=== PATIENT | female | born 2005 | race Caucasian/White ===

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

== ENCOUNTER 2024-08-24 14:05 | Emergency (ER) | payer BC, MEDICAID ==
[~2024-08-24] VITALS: Ht 172.7 cm; Wt 89.6 kg
[2024-08-24 16:17] VITALS: BP 120/60; PULSE 84; RESP 16; TEMP 98; O2SAT 97
== END 2024-08-24 16:18 | disposition home or self-care (01) ==
LOC: ER 14:05
DX: S60.211A Contusion of right wrist, initial encounter (principal); X58.XXXA Exposure to other specified factors, initial encounter; Y93.89 Activity, other specified; Y92.89 Other specified places as the place of occurrence of the external cause; Y99.8 Other external cause status
CPT/HCPCS: 29125; 73130; 99283

== ENCOUNTER 2025-07-20 13:22 | Emergency (ER) | payer BC, MEDICAID ==
[~2025-07-20] VITALS: Ht 172.7 cm; Wt 85.0 kg
[2025-07-20 13:24] VITALS: BP 126/80; PULSE 91; TEMP 96.8; O2SAT 98
--- NOTE | 2025-07-20 13:25 | Physician Documentation ---
History of Present Illness ~ Stated Complaint: MED CLEARANCE Time Seen by MD: 13:24 Primary Medical Doctor: [facility] 20-year-old female who presents to the emergency department requesting clearance to enter transitional housing. She reports that she has a history of alcohol use disorder, last drink was two days ago. Her symptoms include anxiety and mild tremor. She also notes that she has a headache. Tetanus within 5 years?: Yes Medication Reconciliation Allergies: Coded Allergies: No Known Allergies (Unverified , 07/20/25) Miscellaneous Medications Home Med List (No Home Medications), (Reported) Past Medical History Past Medical History: No Pertinent History Past Surgical History: no surgical history Lives with: Mother Lives In: Home Occupation: student Review of Systems ROS As stated above in the HPI, otherwise all systems are reviewed and negative. Physical Exam Physical Exam General: Alert, no apparent distress. HEENT: PERRL, EOMI, no injection, moist mucous membranes. Neck: Full range of motion. Respiratory: Lungs clear, no respiratory distress. Chest: No accessory muscle use. Cardiovascular: Regular rate and rhythm, no murmurs. Gastrointestinal: Soft, nontender, nondistended. Bowels sounds present. Extremities: Normal range of motion, no deformity. Neurologic: Oriented x4. Mild tremor of hands. Psychiatric: Normal mood and affect. Skin: Normal color, warm and dry. No edema, no ecchymosis. Progress Results/Orders Results/Orders Completed Orders - SEAN ALCAZAR NP Lorazepam Tablet (Ativan Tablet) (07/20/25 13:30) Medications Received in ER Medications (Trade) Dose Ordered Sig/[facility] Route PRN Reason Start Time Stop Time Status Last Admin Dose Admin (Ativan tablet) 1 mg ONCE ONCE PO 07/20/25 13:30 07/20/25 13:31 DC 07/20/25 13:42 1 MG Vital Signs 07/20/25 07/20/25 13:24 13:42 Temp 96.8 Pulse 91 Resp 15 15 B/P (MAP) 126/80 Pulse Ox 98 Medical Decision Making Additional information obtaine: old records Findings 08/24/24 patient here for contusion Differential Dx:Considerations: Include: Intoxication-Alcohol, Intoxication- Other drug, Personality disorder, Substance abuse disorder, Acute delirium, Closed head injury, Cervical spine injury, Skull fracture, Fracture(s), Abrasion, Contusion, Foreign body, Hematoma, Laceration, Alcohol withdrawl syndrom, Encephalopathy, Hepatitis, Medically stable Departure Time of Disposition: 13:27 Disposition: 01 HOME / SELF CARE / HOMELESS Impression: Primary Impression: General medical exam Additional Impression: Alcohol use disorder Discharge Instructions: Alcohol Use Disorder, Medical Screening Exam Additional Instructions: Medically cleared to enter transitional housing. Referrals: NO PRIMARY CARE PROVIDER (PCP) Education Educated: Patient Educated regarding: diagnosis, treatment, prognosis, need for follow up Signature Scribe Signature: x Attestation: The note accurately reflects work and decisions made by me.Sean Mann NP 07/20/25 14:09 SEAN ALCAZAR NP Jul 20, 2025 13:25
[2025-07-20 13:42] VITALS: RESP 15
== END 2025-07-20 13:45 | disposition home or self-care (01) ==
LOC: ER 13:22
DX: Z00.00 Encounter for general adult medical examination without abnormal findings (principal); F10.10 Alcohol abuse, uncomplicated; R51.9 Headache, unspecified; F41.9 Anxiety disorder, unspecified; Y90.9 Presence of alcohol in blood, level not specified
CPT/HCPCS: 99283

== ENCOUNTER 2025-08-10 20:57 | Emergency (ER) | payer MEDICAID ==
[~2025-08-10] VITALS: Ht 172.7 cm; Wt 83.9 kg
--- NOTE | 2025-08-10 21:14 | Physician Documentation ---
History of Present Illness ~ Chief Complaint: Abscess Stated Complaint: FACIAL SWELLING Time Seen by MD: 21:09 Primary Medical Doctor: None HPI 20-year-old female presents to the ED with a complaint of a pimple that has grown in size x1 day. States she wants it lanced because she is unable to sleep. denies any fevers nausea vomiting. Tetanus Within 5 Years: No Medication Reconciliation Allergies: Coded Allergies: No Known Allergies (Unverified , 07/20/25) Miscellaneous Medications Home Med List (No Home Medications), (Reported) Past Medical History Past Medical History: No Pertinent History Past Surgical History: no surgical history Lives with: Mother Lives In: Home Occupation: student Review of Systems All Other Systems at this time: Reviewed and Negative ROS As stated above in the HPI, otherwise all systems are reviewed and negative. Physical Exam Vital Signs: Temperature: 98.0, Heart Rate: 101, Respiratory Rate: 16, BP: 120/78, Pulse Oximetry: 97, Weight: 83.900 Oxygen Flow Rate: 0 Physical Exam General: Alert, no apparent distress. HEENT: PERRL, EOMI, no injection, moist mucous membranes. 1 Cm pustule with surrounding erythema on the superior aspect of the left Neck: Full range of motion. Respiratory: Lungs clear, no respiratory distress. Procedures I & D Procedure : Anesthesia: Lidocaine w/ Epi Blade Size: 11 Incision: blood drained Tolerated Procedure Well?: yes, no complications Progress Results/Orders Results/Orders Orders - ROLANDO ESPARZA TRESTLE MECHANIC Laceration/I&D Tray Set Up (08/10/25 ) Hydrocodone/Apap 5/325mg Tab ([place] 5/32 (08/10/25 21:35) Completed Orders - ROLANDO ESPARZA TRESTLE MECHANIC Lidocaine 1% W/Epi 1:100,000 (Xylocaine (08/10/25 21:10) Vital Signs 08/10/25 20:59 Temp 98.0 Pulse 101 Resp 16 B/P (MAP) 120/78 Pulse Ox 97 O2 Flow Rate 0 Medical Decision Making Additional information obtaine: old records Findings Attempted to drain this patient is pustule on her left brow. Even with a small incision there was no obvious purulent discharge however did bleed. Suspect the reported abscesses primarily due to inflammation. We will place her on antibiotics and give her some ibuprofen for home Differential Dx:Considerations: Include: Abscess, Bacteremia, Cellulitis, Erysipelas, Felon, Gas gangrene, Hidrademitis suppurativa, Impetigo, Lymphangitis, Osteromyelitis, Paronychia, Septicemia, Other Departure Disposition: 01 HOME / SELF CARE / HOMELESS Impression: Primary Impression: Abscess Discharge Instructions: Abscess, Care After Referrals: NO PRIMARY CARE PROVIDER (PCP) Prescriptions Doxycycline Monohydrate (Doxycycline Monohydrate) 100 Mg Capsule 1 CAP PO Q12H for 10 Days, #20 CAP Prov: ROLANDO ESPARZA TRESTLE MECHANIC 08/10/25 Ibuprofen* (Motrin*) 400 Mg Tablet 1 TAB PO Q8H for pain or fever for 20 Days, #60 TAB Prov: ROLANDO ESPARZA NP 08/10/25 Signature Scribe Signature: t Attestation: Scribed for Rolando Esparza Incising Machine Operator by Rolando Esparza - MELQUIADES . 08/10/25 21:35 ROLANDO ESPARZA NP Aug 10, 2025 21:14
[2025-08-10] MEDS: LIDOcaine 1% W/epiNEPHrine 1:100,000 20ml vial SQ ONE (21:33)
[2025-08-10] MEDS ORDERED: IBUP-1984 PO (21:37)
[2025-08-10] MEDS ORDERED: DOXY-461 PO (21:37)
[2025-08-10] MEDS: DOXYCYCLINE 100MG CAPSULE PO STA (22:01)
[2025-08-10] MEDS: HYDROcodone/acetaminophen 5mg/325mg tablet PO ONE (22:01)
[2025-08-10 22:29] VITALS: BP 119/77; PULSE 99; RESP 18; TEMP 98.6; O2SAT 99
== END 2025-08-10 22:31 | disposition home or self-care (01) ==
LOC: ER 20:58
DX: H44.001 Unspecified purulent endophthalmitis, right eye (principal)
CPT/HCPCS: 99283